=== PATIENT | female | born 1975 | race Caucasian/White ===

== ENCOUNTER 2016-06-06 06:13 | Emergency (ER) | payer OTHER, SELFPAY ==
[2016-06-06] MEDS ORDERED: KETOROLAC 30 MG/ML VIAL (J1885) As Ordered ONE (07:29)
--- NOTE | 2016-06-06 08:08 | EDDOCDS ---
Physician Documentation [facility] Name: Kaitlin Sanchez Age: 41 yrs Sex: Female : 1975 Arrival Date: 06/06/2016 Time: 06:13 Bed I3 / M3 Private MD: Disposition: 06/06/16 07:58 Discharged to Home/Self Care. Impression: Migraine with aura. - Condition is Stable. - Discharge Instructions: Migraine Headache. - Prescriptions for ZOFRAN ODT 4 mg - dissolve 1 tablet by ORAL route 4 times per day As needed do not chew, do not swallow whole; 10 tablet. ketorolac 10 mg Oral Tablet - take 1 tablet by ORAL route every 6 hours As needed MDD- 40mg. Up to 5 days total use.; 16 tablet. - Medication Reconciliation, Referral List Call for Appointment, Local Pharmacy Hours form. - Follow up: Emergency Department; When: As needed; Reason: Worsening of conditions. - Problem is an acute exacerbation. - Symptoms have improved. Historical: - Allergies: No known drug Allergies; - Home Meds: 1. none - PMHx: Migraine Headaches; - PSHx: ; Tubal ligation; - Social history: Smoking status: Patient uses tobacco products, heavy tobacco smoker. No barriers to communication noted, The patient speaks fluent Botswanan, Speaks appropriately for age. - Family history: Not pertinent. - : The pt / caregiver states he / she is not on anticoagulants. Home medication list is obtained from the patient. - Exposure Risk Screening:: None identified. 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 2 in. (157.48 cm); 08:01 BP 128 / 69; Pulse 59; Resp 18; Temp 96.8; Pulse Ox 98% ; Pain 4/10; jam1 06:22 Body Mass Index 27.07 (67.13 kg, 157.48 cm) cz MDM: 07:22 ketorolac 60 mg IM once ordered. ar2 07:56 Financial registration complete. lg Administered Medications: 07:31 Drug: ketorolac 60 mg [ketorolac 30 mg/mL (1 mL) injection solution (2 mL)] Route: IM; pml Site: right gluteus; Signatures: Timo Cleveland, RN RN Arnoldo Retana Reg Reg lg Robie, Kathleen,DINESH RN kr3 Helder Roberts, PADago PADago ar2 Francy Marie,DINESH RN pml MTDD
--- NOTE | 2016-06-06 08:08 | EDDOCDS ---
Nurse's Notes [facility] Name: Kaitlin Sanchez Age: 41 yrs Sex: Female : 1975 Arrival Date: 06/06/2016 Time: 06:13 Bed I3 / M3 Private MD: Diagnosis: Migraine with aura Presentation: 06/06 06:18 Presenting complaint: Patient states: she started with a migraine headache around 0000 cz last night pt has a history of same but has had them less frequently lately pt has photophobia nausea with vomiting. This patient has no additional risk factors. Adult Sepsis Screening: The patient does not have new or worsening altered mentation. Patient's respiratory rate is less than 22. Systolic blood pressure is greater than 100. Patient has a qSOFA score of 0- Negative Sepsis Screen. Suicide/Homicide risk assessment- the patient denies having any suicidal and/or homicidal ideations and does not present with any other emotional, behavioral or mental health complaints. 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 Transition of care: patient was not received from another setting of care. 06:18 Acuity: DENISE Level 3 cz 06:18 Method Of Arrival: Walkin/Carried/Asstd cz Triage Assessment: 06:22 Headache History: This patient has a history of headaches and the character of this cz headache is like all previous headaches. General: Appears uncomfortable. Pain: Pain currently is 6 out of 10 on a pain scale. Pain began six hours ago Also complains of nausea, photophobia. HIV screening NA for this visit Offered previously. 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 none - PMHx: Migraine Headaches; - PSHx: ; Tubal ligation; - Social history: Smoking status: Patient uses tobacco products, heavy tobacco smoker. No barriers to communication noted, The patient speaks fluent Lao, Speaks appropriately for age. - Family history: Not pertinent. - : The pt / caregiver states he / she is not on anticoagulants. Home medication list is obtained from the patient. - Exposure Risk Screening:: None identified. Screenin:31 Screening information is obtained from the patient. Fall risk: No risks identified. pml Assistance ADL's: requires no assistance with activities of daily living. Abuse/DV Screen: The patient / caregiver reports he/she is: not in a situation that causes fear, pain or injury. Nutritional screening: No deficits noted. Advance Directives: Currently, there is no health care proxy. home support is adequate. Assessment: 07:31 General: Appears uncomfortable, Behavior is appropriate for age, cooperative. Pain: pml Location: headache Pain currently is 6 out of 10 on a pain scale. Neurological: Level of Consciousness is awake, alert, Oriented to person, place, time, Reports photophobia. Cardiovascular: Capillary refill < 3 seconds. Respiratory: Airway is patent Respiratory effort is even, unlabored. Derm: Skin is pink, warm & dry. 08:07 Reassessment: Patient states feeling better. Pain: Location: headache Pain currently is kr3 4 out of 10 on a pain scale. Neurological: Level of Consciousness is awake, alert, Gait is steady, Speech is normal. Respiratory: Respiratory effort is even, unlabored. Derm: Skin is pink, warm & dry. Vital Signs: 06:22 BP 139 / 74; Pulse 78; Resp 16; Temp 99.5(TE); Pulse Ox 98% on R/A; Weight 67.13 kg; cz Height 5 ft. 2 in. (157.48 cm); 08:01 BP 128 / 69; Pulse 59; Resp 18; Temp 96.8; Pulse Ox 98% ; Pain 4/10; jam1 06:22 Body Mass Index 27.07 (67.13 kg, 157.48 cm) cz Vitals: 06:22 Log In Time: June 06, 2016 at 06:13. ED Course: 06:15 Patient visited by Danielle Angel. gjb 06:15 Patient moved to Waiting gjb 06:17 Patient moved to Triage 1 cz 06:22 Triage Initiated cz 06:25 Patient moved to Pre RCE cz 06:58 Patient moved to I3 / M3 jam1 07:05 Pt greeted and oriented to ED. Patient advised of names of staff involved in care, jam1 location of call long, wait times and NPO status. Patient has correct armband on for positive identification. Bed in low position. Call light in reach. Side rails up X 1. Adult w/ patient. Door closed. 07:14 Helder Roberts PA-C is PHCP. ar2 07:14 Wyatt Bates MD is Attending Physician. ar2 07:14 Patient visited by Helder Roberts PA-C. ar2 07:31 The patient / caregiver is instructed regarding the plan of care and ED course. pml 07:31 No IV's were initiated during this patient's visit. No procedures done that require pml assistance. 07:32 Patient visited by Francy Marie,RN. pml Administered Medications: 07:31 Drug: ketorolac 60 mg [ketorolac 30 mg/mL (1 mL) injection solution (2 mL)] Route: IM; pml Site: right gluteus; Order Results: There are currently no results for this order. Outcome: 07:58 Discharge ordered by Provider. ar2 08:06 Discharge Assessment: patient administered narcotics - no. The following High Risk kr3 Discharge criteria are identified: None. Discharged to home ambulatory. Condition: stable. Discharge instructions given to patient, Instructed on discharge instructions, follow up and referral plans. medication usage, Demonstrated understanding of instructions, medications, Pt was receptive of discharge instructions/ teaching. Prescriptions given X 2. No special radiology studies were completed. Property sent home with patient. 08:08 Patient left the ED. kr3 Signatures: Timo Cleveland, RN RN Nicole Gallego, BLENDING LINE ATTENDANT BLENDING LINE ATTENDANT jam1 Rosalie CruzRN DINESH kr3 Helder Roberts PA-C PA-C ar2 Francy Marie,RN RN Danielle Henderson MTDD
--- NOTE | 2016-06-08 09:08 | EDDOCDS ---
Nurse's Notes [facility] Name: Kaitlin Sanchez Age: 41 yrs Sex: Female : 1975 Arrival Date: 06/06/2016 Time: 06:13 Bed I3 / M3 Private MD: Diagnosis: Migraine with aura Presentation: 06/06 06:18 Presenting complaint: Patient states: she started with a migraine headache around 0000 cz last night pt has a history of same but has had them less frequently lately pt has photophobia nausea with vomiting. This patient has no additional risk factors. Adult Sepsis Screening: The patient does not have new or worsening altered mentation. Patient's respiratory rate is less than 22. Systolic blood pressure is greater than 100. Patient has a qSOFA score of 0- Negative Sepsis Screen. Suicide/Homicide risk assessment- the patient denies having any suicidal and/or homicidal ideations and does not present with any other emotional, behavioral or mental health complaints. 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 Transition of care: patient was not received from another setting of care. 06:18 Acuity: DENISE Level 3 cz 06:18 Method Of Arrival: Walkin/Carried/Asstd cz Triage Assessment: 06:22 Headache History: This patient has a history of headaches and the character of this cz headache is like all previous headaches. General: Appears uncomfortable. Pain: Pain currently is 6 out of 10 on a pain scale. Pain began six hours ago Also complains of nausea, photophobia. HIV screening NA for this visit Offered previously. 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 none - PMHx: Migraine Headaches; - PSHx: ; Tubal ligation; - Social history: Smoking status: Patient uses tobacco products, heavy tobacco smoker. No barriers to communication noted, The patient speaks fluent Macedonian, Speaks appropriately for age. - Family history: Not pertinent. - : The pt / caregiver states he / she is not on anticoagulants. Home medication list is obtained from the patient. - Exposure Risk Screening:: None identified. Screenin:31 Screening information is obtained from the patient. Fall risk: No risks identified. pml Assistance ADL's: requires no assistance with activities of daily living. Abuse/DV Screen: The patient / caregiver reports he/she is: not in a situation that causes fear, pain or injury. Nutritional screening: No deficits noted. Advance Directives: Currently, there is no health care proxy. home support is adequate. Assessment: 07:31 General: Appears uncomfortable, Behavior is appropriate for age, cooperative. Pain: pml Location: headache Pain currently is 6 out of 10 on a pain scale. Neurological: Level of Consciousness is awake, alert, Oriented to person, place, time, Reports photophobia. Cardiovascular: Capillary refill < 3 seconds. Respiratory: Airway is patent Respiratory effort is even, unlabored. Derm: Skin is pink, warm & dry. 08:07 Reassessment: Patient states feeling better. Pain: Location: headache Pain currently is kr3 4 out of 10 on a pain scale. Neurological: Level of Consciousness is awake, alert, Gait is steady, Speech is normal. Respiratory: Respiratory effort is even, unlabored. Derm: Skin is pink, warm & dry. Vital Signs: 06:22 BP 139 / 74; Pulse 78; Resp 16; Temp 99.5(TE); Pulse Ox 98% on R/A; Weight 67.13 kg; cz Height 5 ft. 2 in. (157.48 cm); 08:01 BP 128 / 69; Pulse 59; Resp 18; Temp 96.8; Pulse Ox 98% ; Pain 4/10; jam1 06:22 Body Mass Index 27.07 (67.13 kg, 157.48 cm) cz Vitals: 06:22 Log In Time: June 06, 2016 at 06:13. ED Course: 06:15 Patient visited by Danielle Angel. gjb 06:15 Patient moved to Waiting gjb 06:17 Patient moved to Triage 1 cz 06:22 Triage Initiated cz 06:25 Patient moved to Pre RCE cz 06:58 Patient moved to I3 / M3 jam1 07:05 Pt greeted and oriented to ED. Patient advised of names of staff involved in care, jam1 location of call long, wait times and NPO status. Patient has correct armband on for positive identification. Bed in low position. Call light in reach. Side rails up X 1. Adult w/ patient. Door closed. 07:14 Helder Roberts PA-C is PHCP. ar2 07:14 Wyatt Bates MD is Attending Physician. ar2 07:14 Patient visited by Helder Roberts PA-C. ar2 07:31 The patient / caregiver is instructed regarding the plan of care and ED course. pml 07:31 No IV's were initiated during this patient's visit. No procedures done that require pml assistance. 07:32 Patient visited by Francy Marie RN. pml 09:10 Patient name changed from Kaitlin\S\Nicole\S\Daniel\S\ to Kaitlin\S\Lalitha\S\Daniel. EDMS 09:11 [facility] Payment Agreement was scanned into [employer] and attached to record. lg 19:37 T-Sheet-- Draft Copy was scanned into [employer] and attached to record. klr Administered Medications: 07:31 Drug: ketorolac 60 mg [ketorolac 30 mg/mL (1 mL) injection solution (2 mL)] Route: IM; pml Site: right gluteus; Order Results: There are currently no results for this order. Outcome: 07:58 Discharge ordered by Provider. ar2 08:06 Discharge Assessment: patient administered narcotics - no. The following High Risk kr3 Discharge criteria are identified: None. Discharged to home ambulatory. Condition: stable. Discharge instructions given to patient, Instructed on discharge instructions, follow up and referral plans. medication usage, Demonstrated understanding of instructions, medications, Pt was receptive of discharge instructions/ teaching. Prescriptions given X 2. No special radiology studies were completed. Property sent home with patient. 08:08 Patient left the ED. kr3 Signatures: Dispatcher [facility] EDOK Timo Cleveland RN RN cz Murphy, Jane, BRICK TESTER BRICK TESTER jam1 Arnoldo Mercado, Gurvinder Hollins Rosalie Cruz RN RN kr3 Helder Roberts PA-C PA-C ar2 Francy Marie RN RN pml Beck, Gabriela gjb Redder, Kathie klr Chart Complete MTDD
--- NOTE | 2016-06-08 09:08 | EDDOCDS ---
Physician Documentation [facility] Name: Kaitlin Sanchez Age: 41 yrs Sex: Female : 1975 Arrival Date: 06/06/2016 Time: 06:13 Bed I3 / M3 Private MD: Disposition: 06/06/16 07:58 Discharged to Home/Self Care. Impression: Migraine with aura. - Condition is Stable. - Discharge Instructions: Migraine Headache. - Prescriptions for ZOFRAN ODT 4 mg - dissolve 1 tablet by ORAL route 4 times per day As needed do not chew, do not swallow whole; 10 tablet. ketorolac 10 mg Oral Tablet - take 1 tablet by ORAL route every 6 hours As needed MDD- 40mg. Up to 5 days total use.; 16 tablet. - Medication Reconciliation, Referral List Call for Appointment, Local Pharmacy Hours form. - Follow up: Emergency Department; When: As needed; Reason: Worsening of conditions. - Problem is an acute exacerbation. - Symptoms have improved. Historical: - Allergies: No known drug Allergies; - Home Meds: 1. none - PMHx: Migraine Headaches; - PSHx: ; Tubal ligation; - Social history: Smoking status: Patient uses tobacco products, heavy tobacco smoker. No barriers to communication noted, The patient speaks fluent [place] Citizen, Speaks appropriately for age. - Family history: Not pertinent. - : The pt / caregiver states he / she is not on anticoagulants. Home medication list is obtained from the patient. - Exposure Risk Screening:: None identified. 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 2 in. (157.48 cm); 08:01 BP 128 / 69; Pulse 59; Resp 18; Temp 96.8; Pulse Ox 98% ; Pain 4/10; jam1 06:22 Body Mass Index 27.07 (67.13 kg, 157.48 cm) cz MDM: 07:22 ketorolac 60 mg IM once ordered. ar2 07:56 Financial registration complete. lg 09:11 [facility] Payment Agreement was scanned into [employer] and attached to record. lg 19:37 T-Sheet-- Draft Copy was scanned into [employer] and attached to record. klr Administered Medications: 07:31 Drug: ketorolac 60 mg [ketorolac 30 mg/mL (1 mL) injection solution (2 mL)] Route: IM; pml Site: right gluteus; Signatures: Timo Cleveland RN RN cz Arnoldo Mercado, Gurvinder Hollins lg Rosalie Cruz RN RN kr3 Helder Roberts PA-C PADago ar2 Francy Marie RN RN pml Redder, Kathie klr The chart was reviewed and I authenticate all verbal orders and agree with the evaluation and treatment provided.Attachments: 09:11 [facility] Payment Agreement lg 19:37 T-Sheet-- Draft Copy klr Chart Complete MTDD
--- NOTE | 2016-06-08 09:08 | EDDOCDS ---
[facility] Name: Kaitlin Sanchez Age: 41 yrs Sex: Female : 1975 Arrival Date: 06/06/2016 Time: 06:13 Bed I3 / M3 Private MD: Disposition: 06/06/16 07:58 Discharged to Home/Self Care. Impression: Migraine with aura. - Condition is Stable. - Discharge Instructions: Migraine Headache. - Prescriptions for ZOFRAN ODT 4 mg - dissolve 1 tablet by ORAL route 4 times per day As needed do not chew, do not swallow whole; 10 tablet. ketorolac 10 mg Oral Tablet - take 1 tablet by ORAL route every 6 hours As needed MDD- 40mg. Up to 5 days total use.; 16 tablet. - Medication Reconciliation, Referral List Call for Appointment, Local Pharmacy Hours form. - Follow up: Emergency Department; When: As needed; Reason: Worsening of conditions. - Problem is an acute exacerbation. - Symptoms have improved. Historical: - Allergies: No known drug Allergies; - Home Meds: 1. none - PMHx: Migraine Headaches; - PSHx: ; Tubal ligation; - Social history: Smoking status: Patient uses tobacco products, heavy tobacco smoker. No barriers to communication noted, The patient speaks fluent Fijian, Speaks appropriately for age. - Family history: Not pertinent. - : The pt / caregiver states he / she is not on anticoagulants. Home medication list is obtained from the patient. - Exposure Risk Screening:: None identified. 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 2 in. (157.48 cm); 08:01 BP 128 / 69; Pulse 59; Resp 18; Temp 96.8; Pulse Ox 98% ; Pain 4/10; jam1 06:22 Body Mass Index 27.07 (67.13 kg, 157.48 cm) cz MDM: 07:22 ketorolac 60 mg IM once ordered. ar2 07:56 Financial registration complete. lg 09:11 [facility] Payment Agreement was scanned into [employer] and attached to record. lg 19:37 T-Sheet-- Draft Copy was scanned into [employer] and attached to record. klr Administered Medications: 07:31 Drug: ketorolac 60 mg [ketorolac 30 mg/mL (1 mL) injection solution (2 mL)] Route: IM; pml Site: right gluteus; Signatures: Timo Cleveland RN RN cz Arnoldo Mercado, Gurvinder Hollins lg Rosalie Cruz RN RN kr3 Helder Roberts PA-C PADago ar2 Francy Marie RN RN pml Redder, Kathie klr The chart was reviewed and I authenticate all verbal orders and agree with the evaluation and treatment provided.Attachments: 09:11 [facility] Payment Agreement lg 19:37 T-Sheet-- Draft Copy klr Chart Complete MTDD
== END 2016-06-06 08:08 | disposition home or self-care (01) ==
LOC: M ED 06:13
DX: G43.109 Migraine with aura, not intractable, without status migrainosus (principal); F17.210 Nicotine dependence, cigarettes, uncomplicated
CPT/HCPCS: 96372; 99283; J1885

== ENCOUNTER 2017-11-05 18:45 | Emergency (ER) | payer OTHER ==
[2017-11-05 20:05] LABS: HEMATOCRIT 35.8 % (36.0-47.0); HEMOGLOBIN 12.3 g/dl (12.0-15.5); MEAN CORPUSCULAR HEMOGLOBIN 26.6 pg (27.0-33.0); MEAN CORPUSCULAR HGB CONC 34.4 g/dl (32.0-36.5); MEAN CORPUSCULAR VOLUME 77.5 fl (80.0-96.0); PLATELET COUNT, AUTOMATED 179 10^3/uL (150-450); RED BLOOD COUNT 4.62 10^6/uL (4.00-5.40); RED CELL DISTRIBUTION WIDTH 14.2 % (11.5-14.5); WHITE BLOOD COUNT 5.9 10^3/uL (4.0-10.0)
[2017-11-05 20:15] LABS: ADD MANUAL DIFFER YES; DIFF SLIDE NUMBER 156; POSITIVE MORPH POS FLAG
[2017-11-05 20:30] LABS: CONTROL LINE MONO INT CTR LINE PRESENT; MONO SCRN NEGATIVE (NEGATIVE)
[2017-11-05 20:35] LABS: ATYPICAL LYMPH 1 % (0-5); BANDS 2 % (< 11); BASOPHILS 2 % (0-4); EOSINOPHILS 1 % (0-5); LYMPHOCYTES 21 % (16-52); MONOCYTES 1 % (0-8); NEUTROPHILS 72 % (35-75)
[2017-11-05 20:37] LABS: PLATELET ESTIMATE NORMAL (NORMAL)
[2017-11-05 20:38] LABS: ALBUMIN 3.3 GM/DL (3.2-5.2); ALBUMIN/GLOBULIN RATIO 0.97 (1.00-1.93); ALKALINE PHOSPHATASE 110 U/L (45-117); ALT/SGPT 105 U/L (12-78); ANION GAP 6 MEQ/L (8-16); AST/SGOT 56 U/L (7-37); BILIRUBIN,DIRECT 0.1 MG/DL (0.0-0.2); BILIRUBIN,TOTAL 0.5 MG/DL (0.2-1.0); BLOOD UREA NITROGEN 10 MG/DL (7-18); C REACTIVE PROTEIN QUANTITATIV 3.16 MG/DL (0.00-0.30); CALCIUM LEVEL 8.6 MG/DL (8.5-10.1); CARBON DIOXIDE LEVEL 25 MEQ/L (21-32); CHLORIDE LEVEL 105 MEQ/L (98-107); CREATININE FOR GFR 0.68 MG/DL (0.55-1.30); ERYTHROCYTE SEDIMENTATION RATE 31 mm/hr (0-20); GLOMERULAR FILTRATION RATE > 60.0 (>58); GLUCOSE, FASTING 105 MG/DL (70-100); POTASSIUM SERUM 3.8 MEQ/L (3.5-5.1); SODIUM LEVEL 136 MEQ/L (136-145); TOTAL PROTEIN 6.7 GM/DL (6.4-8.2)
[2017-11-05] MEDS: LevoFLOXacin 750 MG TABLET PO (21:00)
[2017-11-09 00:06] LABS: Lyme Disease IgG/IgM Antibodie <0.91 ISR (0.00-0.90); Lyme Disease IgM Ab Quantitati <0.80 index (0.00-0.79)
== END 2017-11-05 22:36 | disposition home or self-care (01) ==
LOC: M ED 18:45
DX: R53.83 Other fatigue (principal); R21 Rash and other nonspecific skin eruption; R50.9 Fever, unspecified; Z72.0 Tobacco use
CPT/HCPCS: 71046

== ENCOUNTER 2018-02-04 20:40 | Emergency (ER) | payer OTHER ==
[2018-02-04] MEDS: NAPROXEN 250 MG TAB PO (22:17)
== END 2018-02-04 22:22 | disposition home or self-care (01) ==
LOC: M ED 20:40
DX: M25.512 Pain in left shoulder (principal); F17.210 Nicotine dependence, cigarettes, uncomplicated
CPT/HCPCS: 73030

== ENCOUNTER 2018-12-07 12:31 | Emergency (ER) | payer OTHER ==
[~2018-12-07] VITALS: Ht 157.5 cm; Wt 77.7 kg
[~2018-12-07 12:31] MED LIST: IBUP-1114 PO; LEVA750T7 PO; NAPR-837 PO
[2018-12-07 13:56] LABS: BASO % 0.4 % (0.0-1.0); EOS # 0.1 10^3/uL (0.0-0.50); EOS % 1.4 % (0.0-3.0); HEMATOCRIT 39.4 % (36.0-47.0); HEMOGLOBIN 13.9 g/dl (12.0-15.5); LYMPH # 2.6 10^3/uL (1.5-4.5); LYMPH % 27.2 % (24.0-44.0); MEAN CORPUSCULAR HEMOGLOBIN 29.4 pg (27.0-33.0); MEAN CORPUSCULAR HGB CONC 35.3 g/dl (32.0-36.5); MEAN CORPUSCULAR VOLUME 83.3 fl (80.0-96.0); MONO # 0.5 10^3/uL (0.0-0.8); MONO % 5.1 % (0.0-5.0); NEUTROPHILS # 6.3 10^3/uL (1.8-7.7); NEUTROPHILS % 65.5 % (36.0-66.0); PLATELET COUNT, AUTOMATED 204 10^3/uL (150-450); RED BLOOD COUNT 4.73 10^6/uL (4.00-5.40); WHITE BLOOD COUNT 9.6 10^3/uL (4.0-10.0)
[2018-12-07 15:14] LABS: ALBUMIN 3.4 GM/DL (3.2-5.2); ALT/SGPT 55 U/L (12-78); BILIRUBIN,DIRECT < 0.1 MG/DL (0.0-0.2); BILIRUBIN,TOTAL 0.7 MG/DL (0.2-1.0); BLOOD UREA NITROGEN 10 MG/DL (7-18); CALCIUM LEVEL 8.1 MG/DL (8.5-10.1); CARBON DIOXIDE LEVEL 25 MEQ/L (21-32); CHLORIDE LEVEL 105 MEQ/L (98-107); CREATININE FOR GFR 0.55 MG/DL (0.55-1.30); GLOMERULAR FILTRATION RATE > 60.0 (>58); GLUCOSE, FASTING 152 MG/DL (70-100); LIPASE 407 U/L (73-393); POTASSIUM SERUM 3.9 MEQ/L (3.5-5.1); SODIUM LEVEL 136 MEQ/L (136-145); TOTAL PROTEIN 6.7 GM/DL (6.4-8.2)
[2018-12-07] MEDS ORDERED: NS 500 ML IV ONE (15:30)
--- NOTE | 2018-12-07 16:06 | REP ---
CT of the abdomen and pelvis without IV or bowel contrast for left flank pain and history of renal calculi: There are no comparison abdomen pelvis CT studies. There are no renal calculi. There are no ureteral calculi. There are no bladder calculi. There is no hydronephrosis. There is no perinephric stranding. The visualized lung daily are unremarkable. The unenhanced hepatic parenchyma, gallbladder, pancreas, spleen, adrenals, abdominal aorta, bowel and mesentery are unremarkable. Pelvis: The appendix and terminal ileum are unremarkable. The bladder is unremarkable. There are phleboliths and ligation clips. There is no adenopathy or ascites. The pelvic bowel loops are unremarkable. There is no diverticulosis or diverticulitis. The uterus and right adnexa are unremarkable. There is a 16 mm left adnexal follicle. Impression: There is no hydronephrosis. There are no renal, ureteral or bladder calculi. There is a 16 mm left adnexal follicle. There are phleboliths and ligation clips in the pelvis. Otherwise, negative CT of the abdomen and pelvis. Electronically Signed by Bhupendra Jaeger MD 12/07/2018 03:58 P
[2018-12-07 16:28] VITALS: BP 118/67
[2018-12-07] MEDS ORDERED: KETOROLAC 30 MG/ML VIAL (J1885) IV ONE (16:30)
== END 2018-12-07 18:25 | disposition home or self-care (01) ==
LOC: M ED 12:31
DX: N83.02 Follicular cyst of left ovary (principal); R74.8 Abnormal levels of other serum enzymes; J45.909 Unspecified asthma, uncomplicated; G43.909 Migraine, unspecified, not intractable, without status migrainosus; Z87.442 Personal history of urinary calculi; F17.210 Nicotine dependence, cigarettes, uncomplicated
CPT/HCPCS: 74176; 80048; 80076; 81001; 83690; 85025; 96361; 96374; 99284; J1885

== ENCOUNTER 2019-01-23 04:37 | Emergency (ER) | payer OTHER ==
[~2019-01-23] VITALS: Ht 157.5 cm; Wt 76.4 kg
[2019-01-23 04:37] VITALS: BP 156/70
[2019-01-23] MEDS ORDERED: ONDANSETRON 4 MG TAB (S0181) PO ONE (05:45)
[2019-01-23] MEDS ORDERED: SUMAtriptan SUCCINATE 6 MG/0.5 ML VIAL SC ONE (05:45)
== END 2019-01-23 06:20 | disposition home or self-care (01) ==
LOC: M ED 04:37
DX: G43.009 Migraine without aura, not intractable, without status migrainosus (principal)

== ENCOUNTER 2019-06-23 04:31 | Emergency (ER) | payer OTHER ==
[~2019-06-23] VITALS: Ht 157.5 cm; Wt 76.6 kg
[2019-06-23 05:34] LABS: PLATELET COUNT, AUTOMATED 267 10^3/uL (150-450); RED BLOOD COUNT 4.57 10^6/uL (4.00-5.40)
[2019-06-23] MEDS ORDERED: KETOROLAC 30 MG/ML VIAL (J1885) IV ONE (06:15)
[2019-06-23] MEDS ORDERED: ONDANSETRON 4MG/2ML VIAL (J2405) IV ONE (06:15)
[2019-06-23] MEDS ORDERED: NS 1,000 ML IV ONE (06:15)
[2019-06-23 06:41] LABS: HEMATOCRIT 34.1 % (36.0-47.0); HEMOGLOBIN 11.1 g/dl (12.0-15.5); MEAN CORPUSCULAR HEMOGLOBIN 26.9 pg (27.0-33.0); MEAN CORPUSCULAR HGB CONC 32.6 g/dl (32.0-36.5); MEAN CORPUSCULAR VOLUME 82.8 fl (80.0-96.0)
[2019-06-23 06:42] LABS: WHITE BLOOD COUNT 10.7 10^3/uL (4.0-10.0)
[2019-06-23 06:43] LABS: ALBUMIN 2.9 GM/DL (3.2-5.2); ALT/SGPT 42 U/L (12-78); BILIRUBIN,DIRECT < 0.1 MG/DL (0.0-0.2); BILIRUBIN,TOTAL 0.5 MG/DL (0.2-1.0); LIPASE 373 U/L (73-393)
[2019-06-23] MEDS ORDERED: PANTOPRAZOLE 40MG INJ (PROTONIX) (C9113) IV ONE (07:00)
[2019-06-23 07:01] LABS: ATYPICAL LYMPH 6 % (0-5); EOSINOPHILS 3 % (0-3); LYMPHOCYTES 19 % (16-44); MONOCYTES 4 % (0-5); NEUTROPHILS 68 % (28-66)
[2019-06-23 07:02] LABS: ANISOCYTOSIS 1+; PLATELET ESTIMATE NORMAL (NORMAL)
--- NOTE | 2019-06-23 07:23 | REPVR ---
PROCEDURE INFORMATION: Exam: US Abdomen Limited, Right Upper Quadrant Exam date and time: 06/23/2019 6:27 AM Age: 44 years old Clinical indication: Abdominal pain; Epigastric; Additional info: Ruq pain extending into luq TECHNIQUE: Imaging protocol: Real-time ultrasound of the abdomen with image documentation. Examination was focused on the right upper quadrant. COMPARISON: CT ABD PELVIS W/O CONTRAST 12/07/2018 3:24 PM FINDINGS: Liver: The liver demonstrates no focal defects. Gallbladder: The gallbladder demonstrates no wall thickening measuring 2 mm and no gallstones. There is a negative sono Galvez's sign. Common bile duct: The CBD measures 3 mm. Pancreas: The pancreas is normal. Right kidney: The right kidney is normal with no hydronephrosis and measures 12.0 cm. IMPRESSION: Negative right upper quadrant sonogram. Electronically signed by: Octavio Yu On 06/23/2019 07:23:20 AM
--- NOTE | 2019-06-23 07:48 | REPVR ---
PROCEDURE INFORMATION: Exam: CT Abdomen And Pelvis With Contrast Exam date and time: 06/23/2019 7:34 AM Age: 44 years old Clinical indication: Abdominal pain; Epigastric; Additional info: Epigastric pain, into luq TECHNIQUE: Imaging protocol: Computed tomography of the abdomen and pelvis with intravenous contrast. Radiation optimization: All CT scans at this facility use at least one of these dose optimization techniques: automated exposure control; mA and/or kV adjustment per patient size (includes targeted exams where dose is matched to clinical indication); or iterative reconstruction. Contrast material: ISOVUE 370; Contrast volume: 100 ml; Contrast route: IV; COMPARISON: CT ABD PELVIS W/O CONTRAST 12/07/2018 3:24 PM FINDINGS: Lungs: Minimal right middle lobe linear atelectasis or scar. Liver: The liver at mid clavicular line measures 16.2 cm. The liver attenuation is 82 Hounsfield units and the spleen is 109 Hounsfield units. Gallbladder and bile ducts: Normal. No calcified stones. No ductal dilation. Pancreas: Slight peripancreatic induration about the head and neck which extends along the gastric antrum suggesting minimal pancreatitis. There is decreased peripancreatic edema about the tail since the prior study. Spleen: Normal. No splenomegaly. Adrenals: Normal. No mass. Kidneys and ureters: Punctate nonobstructing left renal calculus in the lower pole. Stomach and bowel: There is a diverticulum projecting from the proximal duodenal sweep. Appendix: A normal appendix is seen. Intraperitoneal space: Surgical clip in the cul-de-sac and in the right adnexa. Trace fluid in the cul-de-sac which is physiologic. Vasculature: Unremarkable. No abdominal aortic aneurysm. Lymph nodes: Unremarkable. No enlarged lymph nodes. Bladder: Unremarkable as visualized. Reproductive: Retroverted uterus. Left ovarian cyst measuring 5.8 x 3.3 x 2.3 cm. Bones/joints: Unremarkable. No acute fracture. Soft tissues: Unremarkable. IMPRESSION: 1. Minimal peripancreatic induration about the head and neck consistent with minimal pancreatitis which is slightly increased in this portion of the gland since 12/07/2018. There is decreased edema about the pancreatic tail since the prior study. 2. Borderline hepatomegaly. 3. Punctate nonobstructing left renal calculus in the lower pole which is similar. 4. Left ovarian cyst measuring 5.8 x 3.3 x 2.3 cm which is increased since the prior study. Electronically signed by: Octavio Yu On 06/23/2019 07:47:52 AM
[2019-06-23] MEDS ORDERED: OMEP40CA97 PO (08:08)
[2019-06-23 08:26] VITALS: BP 113/59
--- NOTE | 2019-06-23 09:39 | ED PDOC ---
Post-Departure Follow-Up [facility] faxed formal report of ct abd/p for fu Trina Rowell MD Jun 23, 2019 09:39
[2019-06-23] MEDS ORDERED: OMEP-221 PO (21:54)
== END 2019-06-23 08:38 | disposition home or self-care (01) ==
LOC: M ED 04:31
DX: K29.70 Gastritis, unspecified, without bleeding (principal); K21.9 Gastro-esophageal reflux disease without esophagitis; K85.90 Acute pancreatitis without necrosis or infection, unspecified; N20.0 Calculus of kidney; N83.292 Other ovarian cyst, left side; F17.200 Nicotine dependence, unspecified, uncomplicated; Z87.442 Personal history of urinary calculi
CPT/HCPCS: 74177; 76705; 80047; 80076; 83690; 84702; 85025; 96361; 96374; 96375; 99284; C9113; J1885; J2405

== ENCOUNTER 2019-06-23 17:57 | Inpatient (IN) | payer OTHER ==
[~2019-06-23] VITALS: Ht 157.5 cm; Wt 77.4 kg
[~2019-06-23 17:57] MED LIST changes: +OMEP40CA97 PO
[2019-06-23] MEDS ORDERED: KETOROLAC 30 MG/ML VIAL (J1885) IV ONE (19:00)
[2019-06-23 19:27] LABS: BASO % 0.2 % (0.0-1.0); EOS # 0.1 10^3/uL (0.0-0.5); EOS % 0.9 % (0.0-3.0); HEMATOCRIT 37.5 % (36.0-47.0); HEMOGLOBIN 12.6 g/dl (12.0-15.5); LYMPH # 1.7 10^3/uL (1.5-5.0); LYMPH % 12.4 % (24.0-44.0); MEAN CORPUSCULAR HEMOGLOBIN 27.3 pg (27.0-33.0); MEAN CORPUSCULAR HGB CONC 33.6 g/dl (32.0-36.5); MEAN CORPUSCULAR VOLUME 81.3 fl (80.0-96.0); MONO # 0.6 10^3/uL (0.0-0.8); MONO % 4.5 % (0.0-5.0); NEUTROPHILS # 11.4 10^3/uL (1.5-8.5); NEUTROPHILS % 81.6 % (36.0-66.0); PLATELET COUNT, AUTOMATED 219 10^3/uL (150-450); RED BLOOD COUNT 4.61 10^6/uL (4.00-5.40)
[2019-06-23 20:45] LABS: ALBUMIN 3.6 GM/DL (3.2-5.2); ALT/SGPT 36 U/L (12-78); AMYLASE 175 U/L (25-115); BILIRUBIN,DIRECT < 0.1 MG/DL (0.0-0.2); BILIRUBIN,TOTAL 0.9 MG/DL (0.2-1.0); LIPASE 1318 U/L (73-393)
[2019-06-23] MEDS ORDERED: THIAMINE 100 MG TAB PO SCH (21:00)
[2019-06-23] MEDS ORDERED: ENOXAPARIN 40 MG/0.4 ML SYRINGE (J1650) SC SCH (21:00)
[2019-06-23] MEDS: NS 1,000 ML IV SCH (21:16)
--- NOTE | 2019-06-23 21:23 | HPEPDOC ---
[facility] Medical History & Physical Date of Admission Jun 23, 2019 Date of Service: Jun 23, 2019 Attending Physician: ALFONSO FENG MD History and Physical TIME OF SERVICE: 9:45 PM CHIEF COMPLAINT: Pain HISTORY OF PRESENT ILLNESS: This is a 44-year-old female presents with complaints of "more than 10 out of 10 "in severity "unbearable" pain underneath her ribs that radiates to the left side of her back back, associated with nausea and nonbloody emesis. She was here earlier on today with similar complaints, was noted to have a lipase of 373, and a liver ultrasound that was unremarkable and CT scan with findings consistent with pancreatitis. She was diagnosed with mild pancreatitis / gastritis, sent home with omeprazole and recommendations to resume a clear liquid diet, but she returned because the pain was too severe. REVIEW OF SYSTEMS: 12 point review of systems negative except as listed in HPI PAST MEDICAL/ SURGICAL HISTORY: Pancreatitis Tubal ligation. Status post SOCIAL HISTORY: She smokes. She drinks one or 2 beers on the weekends. She denies recreational of drug use FAMILY HISTORY: CAD Diabetes CKD Dyslipidemia ALLERGIES: Please see below. HOME MEDICATIONS: Please see below. PHYSICAL EXAMINATION: VITAL SIGNS: Please see below. GEN: well-nourished / well developed/ NAD INTEGUMENT: not flushed/ not jaundice / negative gaviota sign neg wood's sign /she has an old well-healed scar from at the lower abdomen HEENT: NCAT / lips acyanotic /mucus membranes moist and pink / sclera anicteric CVS: RRR/NMRG/ radial pedis pulses intact / no lower extremity edema LUNGS: clear to auscultation bilaterally on room air ABDOMEN: Contour (flat) / there are no masses or lesions / bowel sounds are hypoactive/ the abdomen is very tender with light palpation MSK/EXTREMITIES: range of motion intact in all 4 extremities NEURO: CN 2-12 are grossly intact / speech is not dysarthric PSYCH: alert and oriented to person place and time/ able to understand and follow all commands LABORATORY DATA: See below. IMAGING: Ultrasound " IMPRESSION: Negative right upper quadrant sonogram." CT abdomen and pelvis " IMPRESSION: 1. Minimal peripancreatic induration about the head and neck consistent with minimal pancreatitis which is slightly increased in this portion of the gland since 12/07/2018. There is decreased edema about the pancreatic tail since the prior study. 2. Borderline hepatomegaly. 3. Punctate nonobstructing left renal calculus in the lower pole which is similar. 4. Left ovarian cyst measuring 5.8 x 3.3 x 2.3 cm which is increased since the prior study. " MICROBIOLOGY: Please see below. ASSESSMENT: Ms. Sanchez is a 44 old female with a prior history of pancreatitis who is admitted for management of acute pancreatitis. PLAN: 1. Pancreatitis Diagnosis made on the basis of abdominal pain + elevated lipase + CT findings c/w pancreatitis Her LFTs were normal, and her CT and ultrasound did not show stones, therefore, possible remaining causes include alcohol, hypercalcemia, dyslipidemia, autoimmune cause or less likely ibuprofen-induced pancreatitis. Modified Rizwan Score to define organ failure in pts w acute pancreatitis = 0 Plan: NPO/ IVF / f/u serum ETO, calcium, and lipid panel / IV morphine PRN for pain / hold ibuprofen 2. Ovarian cyst - Plan: Follow up with [facility] on an outpatient basis 3. Nonobstructing left renal calculi -Plan: No acute intervention 4. Obesity w BMI of 30.8, complicates care. - Plan: f/u A1C, and w PCP for biller consult / recommend cardiovascular exercise for 40 min 4-5 days a week DVT PROPHYLAXIS: Lovenox DISPOSITION: Home after more than 2 midnight's stay LATE ENTRY #Hypertriglyceridemia -suspect that this might have caused her pancreatitis Plan: will f/u lactic acid, transfer to ICU for insulin drip w dextrose f/u acuchecks Q1H f/u TG Q12H, when her TG is below 500 we can dc insulin and start lipid therapy (ezitamibe), biller consult to discuss low cholesterol diet, GI consult Vital Signs Vital Signs Date Time Temp Pulse Resp B/P (MAP) Pulse Ox O2 Delivery O2 Flow Rate FiO2 06/23/19 19:26 06/23/19 17:57 98.1 88 18 97 Room Air Laboratory Data Labs 24H Laboratory Tests 2 06/23/19 19:00: POC Glucose (Misc Panel) 98, POC Sodium (Misc Panel) 136, POC Potassium (Misc Panel) 3.8, POC Chloride (Misc Panel) 105, POC Total CO2 (Misc Panel) 26.0, POC Blood Urea Nitrogen (Misc Panel 9, POC Ionized Calcium (Misc Panel) 4.6, POC Creatinine (Misc Panel) 0.4L, POC Hematocrit (Misc Panel) 38.0 06/23/19 19:15: Immature Granulocyte % (Auto) 0.4, Neutrophils (%) (Auto) 81.6H, Lymphocytes (%) (Auto) 12.4L, Monocytes (%) (Auto) 4.5, Eosinophils (%) (Auto) 0.9, Basophils (%) (Auto) 0.2, Neutrophils # (Auto) 11.4H, Lymphocytes # (Auto) 1.7, Monocytes # (Auto) 0.6, Eosinophils # (Auto) 0.1, Basophils # (Auto) 0.0, Nucleated Red Blood Cells % (auto) 0.0, POC Lactate (Misc Panel) 0.92, Total Bilirubin 0.9#, Direct Bilirubin < 0.1, Aspartate Amino Transf (AST/SGOT) 20, Alanine Aminotransferase (ALT/SGPT) 36, Alkaline Phosphatase 58, Total Protein 7.0, Albumin 3.6#, Albumin/Globulin Ratio 1.06, Amylase Level 175H, Lipase 1318H CBC/BMP Laboratory Tests 06/23/19 19:15 Home Medications Scheduled Omeprazole (Omeprazole) 40 Mg Capsule.dr, 40 MG PO DAILY NEW MEDICATION, HAS NOT STARTED Scheduled PRN Ibuprofen (Ibuprofen) 400 Mg Tab, 800 MG PO Q6H PRN for PAIN Allergies Coded Allergies: No Known Allergies (Unverified , 12/07/18) A-FIB/CHADSVASC A-FIB History Current/History of A-Fib/PAF?: No Current PO Anticoag Therapy: No ALFONSO FENG MD Jun 23, 2019 21:23
[2019-06-23] MEDS ORDERED: KETOROLAC 30 MG/ML VIAL (J1885) IV PRN (21:30)
[2019-06-23] MEDS ORDERED: ONDANSETRON 4MG/2ML VIAL (J2405) IV PRN (21:30)
[2019-06-23] MEDS ORDERED: LORazepam 2 MG TAB PO PRN (21:30)
[2019-06-23] MEDS ORDERED: OMEP-221 PO (21:54)
[2019-06-23 22:56] LABS: CHOLESTEROL LEVEL 324 MG/DL (<200); HDL CHOLESTEROL 40 MG/DL (>40); NON-HDL-C 284 MG/DL; TRIGLYCERIDES LEVEL 1159 MG/DL (<150)
[2019-06-23] MEDS: MORPHINE 2 MG/ML 1ML VIAL (J2270) IV PRN (22:58)
[2019-06-23 23:10] VITALS: BP 136/63
[2019-06-23 23:13] VITALS: BP 136/63
[2019-06-24] MEDS: NICOTINE 14 MG/24 HR TRANSDERMAL TD SCH ×2 (01:30→09:00)
[2019-06-24] MEDS: NS 1,000 ML IV SCH ×5 (03:33→21:14)
[2019-06-24] MEDS ORDERED: D5W/0.9% SODIUM CHLORIDE 1,000 ML IV SCH (04:30)
[2019-06-24 04:53] LABS: HEMATOCRIT 33.4 % (36.0-47.0); MEAN CORPUSCULAR HEMOGLOBIN 26.9 pg (27.0-33.0); MEAN CORPUSCULAR HGB CONC 32.9 g/dl (32.0-36.5); MEAN CORPUSCULAR VOLUME 81.7 fl (80.0-96.0); PLATELET COUNT, AUTOMATED 184 10^3/uL (150-450); RED BLOOD COUNT 4.09 10^6/uL (4.00-5.40); WHITE BLOOD COUNT 10.5 10^3/uL (4.0-10.0)
[2019-06-24 05:25] LABS: CHOLESTEROL LEVEL 247 MG/DL (<200); CHOLESTEROL RISK RATIO 7.057 (<5); HDL CHOLESTEROL 35 MG/DL (>40); NON-HDL-C 212 MG/DL; TRIGLYCERIDES LEVEL 844 MG/DL (<150)
[2019-06-24 05:42] LABS: ALT/SGPT 21 U/L (12-78); BILIRUBIN,TOTAL 1.8 MG/DL (0.2-1.0); BLOOD UREA NITROGEN 7 MG/DL (7-18); CALCIUM LEVEL 8.1 MG/DL (8.5-10.1); CARBON DIOXIDE LEVEL 23 MEQ/L (21-32); CHLORIDE LEVEL 109 MEQ/L (98-107); CREATININE FOR GFR 0.48 MG/DL (0.55-1.30); GLOMERULAR FILTRATION RATE > 60.0 (>58); GLUCOSE, FASTING 98 MG/DL (70-100); MAGNESIUM LEVEL 1.5 MG/DL (1.8-2.4); POTASSIUM SERUM 3.9 MEQ/L (3.5-5.1); SODIUM LEVEL 138 MEQ/L (136-145); TOTAL PROTEIN 6.7 GM/DL (6.4-8.2)
[2019-06-24] MEDS ORDERED: INSULIN IV RATE CHANGE DOCUMENTATION ML/HR XX SCH (05:45)
[2019-06-24] MEDS ORDERED: INSULIN HUMAN REGULAR 100 UNITS in NS 99 ML IV SCH (05:45)
[2019-06-24 05:55] VITALS: BP 130/70
[2019-06-24] MEDS ORDERED: DEXTROSE 50% 50 ML SYRINGE IV PRN (06:00)
[2019-06-24] MEDS ORDERED: GLUCOSE 4 GM CHEW TABLET PO PRN (06:00)
[2019-06-24] MEDS ORDERED: GLUCAGON FOR INJ 1 MG VIAL (J1610) SC PRN (06:00)
[2019-06-24] MEDS ORDERED: MAGNESIUM OXIDE 400 MG TAB (MAG-OX) PO ONE (07:45)
[2019-06-24 08:00] VITALS: BP 117/67
[2019-06-24] MEDS: MULTIVITAMINS/MINERALS THERAP 1 TAB PO SCH (08:09)
[2019-06-24] MEDS: MORPHINE 2 MG/ML 1ML VIAL (J2270) IV PRN ×2 (08:10→13:40)
[2019-06-24] MEDS ORDERED: FOLIC ACID 1 MG TAB PO SCH (09:00)
--- NOTE | 2019-06-24 11:15 | IPNPDOC ---
Text Note Date of Service The patient was seen on 06/24/19. NOTE Subjective: -Was admitted overnight with abdominal pain and found to have pancreatitis and hypertriglyceridemia and placed in ICU with c/f severe hypertriglyceridemia with plan for d5NS/insulin gtt but triglycerides improved with just fluids so insulin/dextrose was never initiated and GI consult rescinded. -This AM feels better with pain medication on board -Resuming fluids at 250cc/hr while NPO Objective: VITAL SIGNS: Please see below. Hemodynamically stable GEN: well-nourished / well developed/ NAD INTEGUMENT: not flushed/ not jaundice / negative has old well-healed scar HEENT: NCAT / MMM / anicteric CVS: RRR/NMRG/ radial pedis pulses intact / no lower extremity edema LUNGS: clear to auscultation bilaterally on room air ABDOMEN: Hypoactive bowel sounds/ mild TTP diffusely/ no noted hepatosplenomegaly MSK/EXTREMITIES: range of motion intact in all 4 extremities NEURO: CN 2-12 are grossly intact / speech is not dysarthric PSYCH: alert and oriented to person place and time/ able to understand and follow all commands LABORATORY DATA: See below. Triglycerides; 1159--> 844 IMAGING: Ultrasound " IMPRESSION: Negative right upper quadrant sonogram." CT abdomen and pelvis " IMPRESSION: 1. Minimal peripancreatic induration about the head and neck consistent with minimal pancreatitis which is slightly increased in this portion of the gland since 12/07/2018. There is decreased edema about the pancreatic tail since the prior study. 2. Borderline hepatomegaly. 3. Punctate nonobstructing left renal calculus in the lower pole which is similar. 4. Left ovarian cyst measuring 5.8 x 3.3 x 2.3 cm which is increased since the prior study. " MICROBIOLOGY: Please see below. ASSESSMENT: Ms. Sanchez is a 44 old female with a prior history of pancreatitis, untreated HLD with significant progressive hypertriglyceridemia who is admitted for manag ement of acute pancreatitis likely 2/2 hypertriglyceridemia. PLAN: 1. Pancreatitis 2/2 hypertriglyceridemia Diagnosis made on the basis of abdominal pain + elevated lipase + CT findings c/w pancreatitis + elevated triglycerides -Her LFTs were normal -continue NPO/ IVF @ 250cc/hr / IV morphine PRN for pain / hold ibuprofen/ will start gemfibrozil and lipitor 20 tomorrow -check noon triglycerides and if continuing downtrend, will transfer to floor from ICU 2. Ovarian cyst Plan: Follow up with [facility] on an outpatient basis 3. Nonobstructing left renal calculi -Plan: No acute intervention DVT PROPHYLAXIS: Lovenox DISPOSITION: ICU, with likely transfer to floor later this afternoon VS,Fishbone, I+O VS, Fishbone, I+O Laboratory Tests 06/23/19 19:15 06/24/19 04:38 Vital Signs Date Time Temp Pulse Resp B/P (MAP) Pulse Ox O2 Delivery O2 Flow Rate FiO2 06/24/19 08:20 20 06/24/19 08:10 Room Air 06/24/19 08:00 98.9 81 117/67 (84) 99 I&O- Last 24 Hours up to 6 AM 06/24/19 06:00 Intake Total 60 ml Balance 60 ml MIKE GUPTA MD Jun 24, 2019 11:15
[2019-06-24 12:00] VITALS: BP 110/56
[2019-06-24 13:02] LABS: CHOLESTEROL LEVEL 195 MG/DL (<200); CHOLESTEROL RISK RATIO 4.239 (<5); HDL CHOLESTEROL 46 MG/DL (>40); NON-HDL-C 149 MG/DL; TRIGLYCERIDES LEVEL 516 MG/DL (<150)
[2019-06-24 22:00] VITALS: BP 109/55
[2019-06-25] MEDS: NS 1,000 ML IV SCH ×3 (01:02→08:29)
[2019-06-25 04:41] VITALS: BP 109/58
[2019-06-25 05:09] LABS: HEMATOCRIT 29.5 % (36.0-47.0); HEMOGLOBIN 9.6 g/dl (12.0-15.5); MEAN CORPUSCULAR HEMOGLOBIN 27.1 pg (27.0-33.0); MEAN CORPUSCULAR HGB CONC 32.5 g/dl (32.0-36.5); MEAN CORPUSCULAR VOLUME 83.3 fl (80.0-96.0); PLATELET COUNT, AUTOMATED 167 10^3/uL (150-450); RED BLOOD COUNT 3.54 10^6/uL (4.00-5.40); WHITE BLOOD COUNT 9.6 10^3/uL (4.0-10.0)
[2019-06-25 05:33] LABS: ALBUMIN 2.5 GM/DL (3.2-5.2); ALT/SGPT 19 U/L (12-78); BILIRUBIN,TOTAL 0.4 MG/DL (0.2-1.0); BLOOD UREA NITROGEN 3 MG/DL (7-18); CALCIUM LEVEL 7.9 MG/DL (8.5-10.1); CARBON DIOXIDE LEVEL 21 MEQ/L (21-32); CHLORIDE LEVEL 111 MEQ/L (98-107); CHOLESTEROL LEVEL 179 MG/DL (<200); CHOLESTEROL RISK RATIO 5.774 (<5); CREATININE FOR GFR 0.38 MG/DL (0.55-1.30); GLOMERULAR FILTRATION RATE > 60.0 (>58); GLUCOSE, FASTING 80 MG/DL (70-100); HDL CHOLESTEROL 31 MG/DL (>40); LDL CHOLESTEROL 80 MG/DL (<100); MAGNESIUM LEVEL 1.8 MG/DL (1.8-2.4); NON-HDL-C 148 MG/DL; POTASSIUM SERUM 3.5 MEQ/L (3.5-5.1); SODIUM LEVEL 140 MEQ/L (136-145); TOTAL PROTEIN 5.7 GM/DL (6.4-8.2); TRIGLYCERIDES LEVEL 341 MG/DL (<150)
[2019-06-25] MEDS ORDERED: gemfibroziL 600 MG TAB PO SCH (07:30)
[2019-06-25] MEDS: MULTIVITAMINS/MINERALS THERAP 1 TAB PO SCH (08:18)
[2019-06-25 08:23] VITALS: BP 119/57
[2019-06-25] MEDS: NICOTINE 14 MG/24 HR TRANSDERMAL TD SCH (09:00)
[2019-06-25] MEDS ORDERED: ATORVASTATIN 20 MG TAB PO SCH (09:00)
[2019-06-25] MEDS ORDERED: MAGNESIUM OXIDE 400 MG TAB (MAG-OX) PO ONE (09:15)
--- NOTE | 2019-06-25 10:56 | IPNPDOC ---
Text Note Date of Service The patient was seen on 06/25/19. NOTE Subjective: Patient is a 44-year-old female presented to the hospital 2 days ago with severe abdominal pain. Patient was diagnosed pancreatitis Patient says she is feeling better already patient was able tolerate water and Jell-O this morning and was looking forward to trying to eat some more food. Patient says her abdominal pain is mild at this time. Patient has been urinating quite frequently and she remains on IV fluids and is been able to tolerate by mouth intake. In talking with the patient, she does admit to drinking excessive amounts of alcohol. She says she likes to drink liquor and when she makes her mixed drinks she uses about 2 shots and will drink about 5 mixed drinks at a time. She does not do this every day but may be two sometimes three times a we ek. Review of systems General: Patient denies fevers HEENT: Patient denies headaches Cardiovascular: Patient denies chest pain Respiratory: Patient denies shortness of breath, cough GI: Patient endorses mild epigastric abdominal pain : Patient denies pain or difficulty with urination Extremities: Patient denies swelling or pain in extremities Objective: Vitals: (see below) General: No acute distress, laying comfortably in bed. HEENT: Normocephalic, atraumatic, moist mucous membranes. Neck: No JVD or lymphadenopathy Cardiac: RRR, No murmurs Pulm: Clear to auscultation b/l. No wheezing, rhonchi Abd: Mild epigastric abdominal pain. Abdomen is soft and nondistended. Ext: No edema in bilateral lower showing a small Labs (see below) Images: No imaging has been performed. Assessment: Patient is a 44-year-old female with a history of pancreatitis presented with severe abdominal pain which is thought to be secondary to pancreatitis which is thought to be secondary to hypertriglyceridemia. Plan 1. Pancreatitis secondary to hypertriglyceridemia. Patient's pain continues to improve. We are going to push a low-fat diet. Patient no longer needs pain medicine to manage her pain. Patient has been transferred out of the ICU however, she remains in the ICU due to bed availability on the medical surgical floor. Lipitor 20 mg has been started. Gemfibrozil has been held as the patient's triglyceride level has improved with fluid hydration. This will need to be followed outpatient. 2. Ovarian cyst: Follow-up with [facility] as an outpatient 3. Nonobstructing left renal calculi: No acute intervention DVT prophy: Lovenox Dispo: Pending continued improvement of the patient's abdominal pain and able to tolerate oral intake VS,Fishbone, I+O VS, Fishbone, I+O Laboratory Tests 06/25/19 04:56 Vital Signs Date Time Temp Pulse Resp B/P (MAP) Pulse Ox O2 Delivery O2 Flow Rate FiO2 06/25/19 08:23 98.6 76 18 119/57 (77) 97 Room Air I&O- Last 24 Hours up to 6 AM 06/25/19 06:00 Intake Total 7275 ml Balance 7275 ml GME ATTESTATION GME ATTESTATION My faculty preceptor for this patient encounter was physically present during the encounter and was fully available. All aspects of the patient interview, examination, medical decision making process, and medical care plan development were reviewed and approved by the faculty preceptor. The faculty preceptor is aw are and concurs with the plan as stated in the body of this note and will attest to such by his/her cosignature. ATTENDING NOTE Please see my discharge summary for hospital course and discharge plan. ISHAN BHANDARI DO Jun 25, 2019 10:56 MIKE GUPTA MD Jun 25, 2019 21:32
[2019-06-25] MEDS ORDERED: ATOR1TAB21 PO (14:20)
[2019-06-25] MEDS ORDERED: NICO21DI37 TOP (14:41)
--- NOTE | 2019-06-25 15:25 | DS.PDOC ---
Discharge Summary General Date of Admission Jun 23, 2019 at 21:16 Date of Discharge 06/25/2019 Attending Physician: MIKE GUPTA MD Discharge Summary PROCEDURES PERFORMED DURING STAY: None ADMITTING DIAGNOSES: 1. Pancreatitis DISCHARGE DIAGNOSES: 1. Acute pancreatitis 2/2 hypertriglyceridemia 2. Hyperlipidemia 3. Smoking COMPLICATIONS/CHIEF COMPLAINT: Pancreatitis. HISTORY OF PRESENT ILLNESS: 44 yo W with a history of prior pancreatitis, alcohol drinker of unclear amounts? with no history of withdrawal and untreated hyperlipidemia who presented with acute abdominal pain. HOSPITAL COURSE: CT showed inflamed pancreas while lipase was elevated and most important triglycerides were elevated to 1159, while tox screen was negative and alcohol was undetectable. She was admitted to the ICU for hypertriglyceridemia induced pancreatitis and started on fluids rapid improvement of her lipid profile while NPO. There had been a plan for treatment with insulin/dextrose in addition to the fluids for the hypertriglyceridemia but that was held when her profile improved with just fluids. By day 2 she was much improved and pain was much better controlled without any use of the PRN morphine. She was started on lipitor 20mg for HLD. On day 3 she tolerated a regular low fat diet and we are discharging her home on lipitor 20mg and nicotine patches for quitting smoking. DISCHARGE MEDICATIONS: Please see below. ALLERGIES: Please see below. PHYSICAL EXAMINATION ON DISCHARGE: VITAL SIGNS: Please see below. Hemodynamically stable GEN: well-nourished / well developed/ NAD INTEGUMENT: not flushed/ not jaundice / negative has old well-healed scar HEENT: NCAT / MMM / anicteric CVS: RRR/NMRG/ radial pedis pulses intact / no lower extremity edema LUNGS: clear to auscultation bilaterally on room air ABDOMEN: Normoactive bowel sounds/ no TTP/ no noted hepatosplenomegaly MSK/EXTREMITIES: range of motion intact in all 4 extremities NEURO: CN 2-12 are grossly intact / speech is not dysarthric/normal gait PSYCH: alert and oriented to person place and time/ able to understand and follow all commands LABORATORY DATA: Please see below. IMAGIN. Ultrasound " IMPRESSION: Negative right upper quadrant sonogram." 2. CT abdomen and pelvis " IMPRESSION: 1. Minimal peripancreatic induration about the head and neck consistent with minimal pancreatitis which is slightly increased in this portion of the gland since 12/07/2018. There is decreased edema about the pancreatic tail since the prior study. 2. Borderline hepatomegaly. 3. Punctate nonobstructing left renal calculus in the lower pole which is similar. 4. Left ovarian cyst measuring 5.8 x 3.3 x 2.3 cm which is increased since the prior study. " PROGNOSIS: Good ACTIVITY: As tolerated DIET: Low fat diet DISCHARGE PLAN: Home with lipitor, to follow up with PCP with lipid panel in 1m. If she has hypertriglyceridemia out of proportion to her HLD, should consider fibrate therapy. DISPOSITION: Home DISCHARGE INSTRUCTIONS: 1. Please take your lipitor 20mg daily. Please continue her 24hourly nicotine patch, and congratulations on the decision to quit smoking at this time. ITEMS TO FOLLOWUP ON ON OUTPATIENT: 1. Hyperlipidemia 2. Significant hypertriglyceridemia 3. Smoking --> quitting smoking at this time DISCHARGE CONDITION: Good TIME SPENT ON DISCHARGE: 47 minutes. Vital Signs/I&Os Vital Signs Date Time Temp Pulse Resp B/P (MAP) Pulse Ox O2 Delivery O2 Flow Rate FiO2 06/25/19 08:23 98.6 76 18 119/57 (77) 97 Room Air I&O- Last 24 Hours up to 6 AM 06/25/19 06:00 Intake Total 7275 ml Balance 7275 ml Laboratory Data Labs 24H Laboratory Tests 2 06/25/19 04:56: Nucleated Red Blood Cells % (auto) 0.0, Anion Gap 8, Glomerular Filtration Rate > 60.0, Calcium Level 7.9L, Magnesium Level 1.8, Total Bilirubin 0.4#, Aspartate Amino Transf (AST/SGOT) 15, Alanine Aminotransferase (ALT/SGPT) 19, Alkaline Phosphatase 42L, Total Protein 5.7L, Albumin 2.5L, Albumin/Globulin Ratio 0.78L, Triglycerides Level 341H, Total Cholesterol 179, LDL Cholesterol 80, Non-HDL Cholesterol (LDL + VLDL) 148, Total HDL Cholesterol 31L, Cholesterol/HDL Ratio 5.774H CBC/BMP Laboratory Tests 06/25/19 04:56 Discharge Medications Scheduled Atorvastatin Calcium (Atorvastatin Calcium) 20 Mg Tablet, 20 MG PO DAILY Nicotine (Nicotine Patch) 21 Mg Patch.td24, 1 PATCH TOP DAILY for smoking cessation Omeprazole (Omeprazole) 40 Mg Capsule.dr, 40 MG PO DAILY, (Reported) NEW MEDICATION, HAS NOT STARTED Scheduled PRN Ibuprofen (Ibuprofen) 400 Mg Tab, 800 MG PO Q6H PRN for PAIN, (Reported) Allergies Coded Allergies: No Known Allergies (Unverified , 12/07/18) MIKE GUPTA MD Jun 25, 2019 15:25
== END 2019-06-25 15:10 | disposition home or self-care (01) | DRG 423 ==
LOC: M ED 17:57 → M ED INP 21:16 → ENRESERV 21:53 → M MSPAV 23:11 → M ICU 06-24 05:29
PROVIDERS: ADMIT Internal Medicine; ATTEND Internal Medicine
DX: E78.1 Pure hyperglyceridemia (principal); K85.90 Acute pancreatitis without necrosis or infection, unspecified; N20.0 Calculus of kidney; F17.200 Nicotine dependence, unspecified, uncomplicated; E66.9 Obesity, unspecified; Z68.30 Body mass index [BMI] 30.0-30.9, adult; E78.5 Hyperlipidemia, unspecified

== ENCOUNTER → 2019-07-31 | Outpatient (REF) | payer OTHER ==
[~2019-07-31] MED LIST changes: +ATOR1TAB21 PO; +NICO21DI37 TOP; +OMEP-221 PO
[2019-07-31 12:29] LABS: HEMOGLOBIN A1c 5.3 %
[2019-07-31 12:41] LABS: CHOLESTEROL LEVEL 180 MG/DL (<200); CHOLESTEROL RISK RATIO 5.142 (<5); HDL CHOLESTEROL 35 MG/DL (>40); NON-HDL-C 145 MG/DL; TRIGLYCERIDES LEVEL 518 MG/DL (<150)
== END ==
LOC: M LAB REF 11:34
PROVIDERS: ATTEND Family Medicine
DX: E78.1 Pure hyperglyceridemia (principal)

== ENCOUNTER → 2019-10-22 | Outpatient (REF) | payer OTHER ==
[2019-10-22 13:35] LABS: BASO # 0.1 10^3/uL (0.0-0.2); BASO % 0.7 % (0.0-1.0); EOS # 0.2 10^3/uL (0.0-0.5); EOS % 2.5 % (0.0-3.0); HEMATOCRIT 39.5 % (36.0-47.0); HEMOGLOBIN 12.7 g/dl (12.0-15.5); LYMPH # 2.7 10^3/uL (1.5-5.0); MEAN CORPUSCULAR HEMOGLOBIN 26.1 pg (27.0-33.0); MEAN CORPUSCULAR HGB CONC 32.2 g/dl (32.0-36.5); MEAN CORPUSCULAR VOLUME 81.3 fl (80.0-96.0); MONO # 0.6 10^3/uL (0.0-0.8); MONO % 8.2 % (0.0-5.0); NEUTROPHILS # 3.7 10^3/uL (1.5-8.5); NEUTROPHILS % 51.3 % (36.0-66.0); PLATELET COUNT, AUTOMATED 213 10^3/uL (150-450); RED BLOOD COUNT 4.86 10^6/uL (4.00-5.40); WHITE BLOOD COUNT 7.2 10^3/uL (4.0-10.0)
[2019-10-22 13:49] LABS: ALBUMIN 3.7 GM/DL (3.2-5.2); ALT/SGPT 32 U/L (12-78); BILIRUBIN,TOTAL 0.6 MG/DL (0.2-1.0); BLOOD UREA NITROGEN 15 MG/DL (7-18); CALCIUM LEVEL 8.6 MG/DL (8.5-10.1); CARBON DIOXIDE LEVEL 24 MEQ/L (21-32); CHLORIDE LEVEL 110 MEQ/L (98-107); CHOLESTEROL LEVEL 196 MG/DL (<200); CHOLESTEROL RISK RATIO 5.297 (<5); GLOMERULAR FILTRATION RATE > 60.0 (>58); GLUCOSE, FASTING 91 MG/DL (70-100); HDL CHOLESTEROL 37 MG/DL (>40); LDL CHOLESTEROL 92 MG/DL (<100); NON-HDL-C 159 MG/DL; POTASSIUM SERUM 3.9 MEQ/L (3.5-5.1); SODIUM LEVEL 141 MEQ/L (136-145); TOTAL 25(OH) VITAMIN D 15.2 NG/ML (30.0-100.0); TRIGLYCERIDES LEVEL 337 MG/DL (<150)
== END ==
LOC: M LAB REF 12:01
PROVIDERS: ATTEND Family Medicine
DX: E78.1 Pure hyperglyceridemia (principal)

== ENCOUNTER 2019-11-06 00:44 | Emergency (ER) | payer OTHER ==
[~2019-11-06] VITALS: Ht 157.5 cm; Wt 75.0 kg
[2019-11-06] MEDS ORDERED: FENO134C PO (00:49)
[2019-11-06 01:35] LABS: HEMATOCRIT 40.3 % (36.0-47.0); HEMOGLOBIN 13.3 g/dl (12.0-15.5); MEAN CORPUSCULAR HEMOGLOBIN 26.6 pg (27.0-33.0); MEAN CORPUSCULAR VOLUME 80.6 fl (80.0-96.0); PLATELET COUNT, AUTOMATED 283 10^3/uL (150-450); WHITE BLOOD COUNT 8.8 10^3/uL (4.0-10.0)
[2019-11-06 02:04] LABS: ACETAMINOPHEN LEVEL < 2.0 UG/ML (10.0-30.0); ALT/SGPT 40 U/L (12-78); BILIRUBIN,DIRECT < 0.1 MG/DL (0.0-0.2); BILIRUBIN,TOTAL 0.3 MG/DL (0.2-1.0); BLOOD UREA NITROGEN 9 MG/DL (7-18); CARBON DIOXIDE LEVEL 24 MEQ/L (21-32); CHLORIDE LEVEL 110 MEQ/L (98-107); CREATININE FOR GFR 0.76 MG/DL (0.55-1.30); ETHYL ALCOHOL (ETHANOL) 0.203 % (0.000-0.010); GLOMERULAR FILTRATION RATE > 60.0 (>58); GLUCOSE, FASTING 107 MG/DL (70-100); POTASSIUM SERUM 3.6 MEQ/L (3.5-5.1); SALICYLATE LEVEL 4.6 MG/DL (5.0-30.0); SODIUM LEVEL 140 MEQ/L (136-145); TOTAL PROTEIN 7.6 GM/DL (6.4-8.2)
[2019-11-06 06:40] VITALS: BP 113/72
== END 2019-11-06 06:41 | disposition home or self-care (01) ==
LOC: M ED 00:44
DX: F10.120 Alcohol abuse with intoxication, uncomplicated (principal); F43.0 Acute stress reaction; F17.210 Nicotine dependence, cigarettes, uncomplicated; Z79.899 Other long term (current) drug therapy
CPT/HCPCS: 36415; 80048; 80076; 84443; 85027; 99284; G0480

== ENCOUNTER → 2022-10-07 | Outpatient (REF) | payer OTHER ==
[~2022-10-07] MED LIST changes: +FENO134C20 PO; -OMEP-221 PO; +OMEP40CA4 PO; +OMEP40CA5 PO; -OMEP40CA97 PO
[2022-10-07 17:03] LABS: BASO # 0.1 10^3/uL (0.0-0.2); BASO % 0.9 % (0.0-1.0); EOS # 0.2 10^3/uL (0.0-0.5); EOS % 2.9 % (0.0-3.0); HEMATOCRIT 41.4 % (36.0-47.0); HEMOGLOBIN 13.7 g/dl (12.0-15.5); LYMPH # 2.1 10^3/uL (1.5-5.0); MEAN CORPUSCULAR HEMOGLOBIN 28.6 pg (27.0-33.0); MEAN CORPUSCULAR HGB CONC 33.1 g/dl (32.0-36.5); MEAN CORPUSCULAR VOLUME 86.4 fl (80.0-96.0); MONO # 0.5 10^3/uL (0.0-0.8); MONO % 7.7 % (2.0-8.0); NEUTROPHILS # 4.1 10^3/uL (1.5-8.5); NEUTROPHILS % 57.9 % (36.0-66.0); PLATELET COUNT, AUTOMATED 291 10^3/uL (150-450); RED BLOOD COUNT 4.79 10^6/uL (4.00-5.40)
[2022-10-07 17:27] LABS: HEMOGLOBIN A1c 4.8 % (4.0-6.0)
[2022-10-07 17:55] LABS: HEPATITIS B SURFACE ANTIBODY NEGATIVE (POSITIVE); THYROID STIMULATING HORMONE 2.376 uIU/ML (0.55-4.78)
[2022-10-07 17:56] LABS: FERRITIN 86.3 NG/ML (7.3-270.7); TOTAL 25(OH) VITAMIN D 12.8 NG/ML (20.0-100.0)
[2022-10-07 18:07] LABS: HEPATITIS B SURFACE ANTIGEN NEGATIVE (NEGATIVE)
[2022-10-07 18:29] LABS: HEPATITIS B CORE ANTIBODY IGM NEGATIVE (NEGATIVE)
[2022-10-07 18:31] LABS: ALKALINE PHOSPHATASE 69 U/L (46-116); ALT/SGPT 35 U/L (7.0-40); AST/SGOT 27 U/L (<34); BILIRUBIN,TOTAL 0.2 MG/DL (0.3-1.2); BLOOD UREA NITROGEN 13 MG/DL (9-23); CALCIUM LEVEL 9.4 MG/DL (8.5-10.1); CARBON DIOXIDE LEVEL 25 MMOL/L (20-31); CHLORIDE LEVEL 104 MMOL/L (98-107); CHOLESTEROL LEVEL 255 MG/DL (<200); CHOLESTEROL RISK RATIO 10.53 (<5); CREATININE FOR GFR 0.55 MG/DL (0.55-1.30); GLOMERULAR FILTRATION RATE > 60.0 (>58); GLUCOSE, FASTING 81 MG/DL (60-100); HDL CHOLESTEROL 24.2 MG/DL (>40); NON-HDL-C 230.8 MG/DL; POTASSIUM SERUM 4.9 MMOL/L (3.5-5.1); SODIUM LEVEL 137 MMOL/L (136-145); TOTAL PROTEIN 6.9 G/DL (5.7-8.2)
[2022-10-07 18:33] LABS: TRIGLYCERIDES LEVEL 1372 MG/DL (<150)
[2022-10-09 06:08] LABS: CERULOPLASMIN 24.5 mg/dL (19.0-39.0); HEPATITIS BE ANTIGEN Negative (Negative)
== END ==
LOC: M LAB REF 16:26
PROVIDERS: ATTEND Nurse Practitioner Family
DX: K76.0 Fatty (change of) liver, not elsewhere classified (principal); E66.3 Overweight; E55.9 Vitamin D deficiency, unspecified; R53.83 Other fatigue; R94.5 Abnormal results of liver function studies; Z11.9 Encounter for screening for infectious and parasitic diseases, unspecified; Z68.30 Body mass index [BMI] 30.0-30.9, adult

== ENCOUNTER → 2022-10-13 | Outpatient (CLI) | payer OTHER | LOC: M WHC 09:32 | PROVIDERS: ATTEND Nurse Practitioner Family | DX: R92.2 Inconclusive mammogram (principal) ==

== ENCOUNTER → 2022-11-03 | Outpatient (CLI) | payer OTHER | LOC: M WHC 13:49 | PROVIDERS: ATTEND Nurse Practitioner Family | DX: Z12.31 Encounter for screening mammogram for malignant neoplasm of breast (principal) ==

== ENCOUNTER → 2022-12-01 | Outpatient (REF) | payer OTHER ==
[2022-12-01 14:31] LABS: CHOLESTEROL LEVEL 372 MG/DL (<200); CHOLESTEROL RISK RATIO 12.73 (<5); HDL CHOLESTEROL 29.2 MG/DL (>40); NON-HDL-C 342.8 MG/DL; TOTAL 25(OH) VITAMIN D 6.2 NG/ML (20.0-100.0); TRIGLYCERIDES LEVEL 3428 MG/DL (<150)
== END ==
LOC: M LAB REF 11:34
PROVIDERS: ATTEND Nurse Practitioner Family
DX: E55.9 Vitamin D deficiency, unspecified (principal); E78.2 Mixed hyperlipidemia

== ENCOUNTER → 2022-12-10 | Outpatient (REF) | payer OTHER ==
[2022-12-10 13:37] LABS: CHOLESTEROL LEVEL 230 MG/DL (<200); CHOLESTEROL RISK RATIO 6.78 (<5); HDL CHOLESTEROL 33.9 MG/DL (>40); NON-HDL-C 196.1 MG/DL; TRIGLYCERIDES LEVEL 706 MG/DL (<150)
[2022-12-10 13:41] LABS: TOTAL 25(OH) VITAMIN D 12.3 NG/ML (20.0-100.0)
== END ==
LOC: M LAB REF 12:13
PROVIDERS: ATTEND Nurse Practitioner Family
DX: E78.2 Mixed hyperlipidemia (principal); E55.9 Vitamin D deficiency, unspecified

== ENCOUNTER 2024-12-25 16:07 | Inpatient (IN) | payer OTHER, SELFPAY ==
[~2024-12-25] VITALS: Ht 157.5 cm; Wt 73.8 kg
[2024-12-25 17:32] LABS: BASO # 0.1 10^3/uL (0.0-0.2); BASO % 0.4 % (0.0-1.0); EOS # 0.1 10^3/uL (0.0-0.5); EOS % 0.9 % (0.0-3.0); LYMPH # 2.2 10^3/uL (1.5-5.0); LYMPH % 17.3 % (24.0-44.0); MONO # 0.8 10^3/uL (0.0-0.8); MONO % 5.8 % (2.0-8.0); NEUTROPHILS # 9.7 10^3/uL (1.5-8.5); NEUTROPHILS % 75.1 % (36.0-66.0); PLATELET COUNT, AUTOMATED 187 10^3/uL (150-450)
[2024-12-25] MEDS ORDERED: ISOVUE-370 76% 100 ML VIAL As Ordered ONE (18:45)
[2024-12-25] MEDS: MORPHINE 4 MG/ML 1 ML VIAL IV ONE ×2 (18:55→21:37)
[2024-12-25] MEDS: NS (Normal Saline) 0.9% 1,000 ML IV ONE (18:55)
[2024-12-25 18:58] LABS: KETONE, URINE AUTO RFX NEGATIVE (NEGATIVE); LEUKOCYTE ESTERASE UR AUTO RFX NEGATIVE (NEGATIVE); NITRITE, URINE AUTO RFX NEGATIVE (NEGATIVE); RBC, URINE AUTO RFX 3 /HPF (0-3); SQUAM EPITHELIAL CELL UR AURFX 11 /HPF (0-6); WBC, URINE AUTO RFX 1 /HPF (0-3)
[2024-12-25 19:04] LABS: ALT/SGPT 37 U/L (7.0-40); AST/SGOT 44 U/L (<34)
[2024-12-25] MEDS ORDERED: OMEP-173 PO ×2 (20:44)
[2024-12-25] MEDS ORDERED: HOME MED LIST COMPLETE! XX SCH (20:45)
[2024-12-25 22:00] LABS: INR 0.86
[2024-12-25] MEDS ORDERED: NALOXONE INJ 0.4 MG/1 ML VIAL IV PRN (22:05)
[2024-12-25] MEDS ORDERED: KETOROLAC 30 MG/ML 1 ML VIAL IV PRN (22:05)
[2024-12-25] MEDS ORDERED: NICOTINE 21 MG/24 HR 1 EA TRANSDERMAL TD PRN (22:05)
[2024-12-25] MEDS ORDERED: MOM 30 ML SUSPENSION UDC PO PRN (22:05)
[2024-12-25] MEDS ORDERED: MORPHINE 4 MG/ML 1 ML VIAL IV PRN (22:05)
[2024-12-25] MEDS ORDERED: MAALOX 30 ML SUSP *UDC PO PRN (22:05)
[2024-12-25 22:25] LABS: ETHYL ALCOHOL (ETHANOL) < 0.003 % (0.000-0.010)
[2024-12-25 22:31] LABS: MAGNESIUM LEVEL 1.5 MG/DL (1.8-2.4)
[2024-12-25] MEDS: THIAMINE 100 MG TAB PO SCH (22:32)
[2024-12-25] MEDS: NS (Normal Saline) 0.9% 1,000 ML IV SCH (22:32)
[2024-12-25] MEDS: PANTOPRAZOLE 40MG VIAL IV SCH (22:32)
[2024-12-25 22:59] LABS: C REACTIVE PROTEIN QUANTITATIV 2.66 MG/DL (<1.0)
[2024-12-26] MEDS: CIPROFLOXACIN 400 MG in IV 1 EA IV SCH (00:03)
[2024-12-26] MEDS: metroNIDAZOLE 500 MG in IV 1 EA IV SCH (02:01)
[2024-12-26] MEDS: ONDANSETRON 4MG 2ML VIAL IV PRN (02:34)
[2024-12-26] MEDS: MAG SULF 1GM/100ML (MAG RUN) 1 GM in IV 1 EA IV ONE (03:29)
[2024-12-26] MEDS: KETOROLAC 30 MG/ML 1 ML VIAL IV PRN (04:44)
[2024-12-26] MEDS: ENOXAPARIN 40 MG/0.4 ML SYRINGE (J1650 PER 10MG) SC SCH (09:00)
[2024-12-26 09:10] LABS: PLATELET COUNT, AUTOMATED 202 10^3/uL (150-450)
[2024-12-26] MEDS: DOCUSATE SODIUM 100 MG CAPSULE PO SCH (09:19)
[2024-12-26] MEDS: MULTIVITAMINS/MINERALS THERAP 1 TAB PO SCH (09:19)
[2024-12-26] MEDS: FOLIC ACID 1 MG TAB PO SCH (09:24)
[2024-12-26 09:27] LABS: ALT/SGPT 26 U/L (7.0-40); AST/SGOT 57 U/L (<34); CALCIUM LEVEL 8.1 MG/DL (8.5-10.1); CARBON DIOXIDE LEVEL 24 MMOL/L (20-31); CHLORIDE LEVEL 104 MMOL/L (98-107); CREATININE FOR GFR 0.39 MG/DL (0.55-1.30); GLOMERULAR FILTRATION RATE > 90.0 (>58); MAGNESIUM LEVEL 1.9 MG/DL (1.8-2.4); POTASSIUM SERUM 4.8 MMOL/L (3.5-5.1); SODIUM LEVEL 135 MMOL/L (136-145); TRIGLYCERIDES LEVEL 3801 MG/DL (<150)
[2024-12-26] MEDS: ACETAMINOPHEN 325 MG TAB PO PRN (09:33)
[2024-12-26] MEDS ORDERED: MORPHINE 2 MG/ML 1 ML VIAL IV PRN (09:40)
[2024-12-26] MEDS ORDERED: KETOROLAC 30 MG/ML 1 ML VIAL IV PRN (09:40)
[2024-12-26] MEDS ORDERED: INSULIN IV RATE CHANGE DOCUMENTATION ML/HR XX SCH (11:05)
[2024-12-26 12:00] VITALS: BP 150/71; TEMP 97.9; O2SAT 99
[2024-12-26] MEDS ORDERED: D5W/LR 1,000 ML IV SCH (12:15)
[2024-12-26] MEDS: D10W/0.45% SODIUM CHLORIDE 1,000 ML IV SCH (12:33)
[2024-12-26] MEDS: INSULIN REGULAR IN 0.9 % NACL 100 UNIT in IV 1 EA IV SCH (12:45)
[2024-12-26] MEDS: FENOFIBRATE 48 MG TABLET PO SCH (14:38)
[2024-12-26] MEDS: OMEGA-3 1000 MG CAPSULE PO SCH (14:38)
[2024-12-26 16:00] VITALS: BP 111/61; TEMP 97.9; O2SAT 96
[2024-12-26] MEDS ORDERED: D10W/0.45% SODIUM CHLORIDE 1,000 ML IV SCH (16:00)
[2024-12-26] MEDS ORDERED: GLUCOSE 4 GM CHEW PO PRN (17:10)
[2024-12-26] MEDS ORDERED: DEXTROSE 50% 50 ML SYRINGE IV PRN (17:10)
[2024-12-26] MEDS ORDERED: GLUCAGON INJ 1 MG VIAL SC PRN (17:10)
[2024-12-26 18:05] LABS: CALCIUM LEVEL 8.6 MG/DL (8.5-10.1); CARBON DIOXIDE LEVEL 23 MMOL/L (20-31); CHLORIDE LEVEL 106 MMOL/L (98-107); CREATININE FOR GFR 0.43 MG/DL (0.55-1.30); GLOMERULAR FILTRATION RATE > 90.0 (>58); POTASSIUM SERUM 3.2 MMOL/L (3.5-5.1); SODIUM LEVEL 137 MMOL/L (136-145)
[2024-12-26] MEDS: POTASSIUM CHLORIDE 10MEQ SR TABLET PO ONE (19:03)
[2024-12-26 20:00] VITALS: BP 117/58; TEMP 97.6; O2SAT 95
[2024-12-27] VITALS: BP 118/60; O2SAT 95
[2024-12-27 01:49] LABS: CALCIUM LEVEL 8.3 MG/DL (8.5-10.1); CARBON DIOXIDE LEVEL 22 MMOL/L (20-31); CHLORIDE LEVEL 106 MMOL/L (98-107); CREATININE FOR GFR 0.44 MG/DL (0.55-1.30); GLOMERULAR FILTRATION RATE > 90.0 (>58); POTASSIUM SERUM 4.1 MMOL/L (3.5-5.1); SODIUM LEVEL 139 MMOL/L (136-145)
[2024-12-27 04:00] VITALS: BP 123/57; TEMP 98.1; O2SAT 96
[2024-12-27 05:57] LABS: BASO # 0.0 10^3/uL (0.0-0.2); BASO % 0.2 % (0.0-1.0); EOS # 0.1 10^3/uL (0.0-0.5); EOS % 1.1 % (0.0-3.0); LYMPH # 1.4 10^3/uL (1.5-5.0); LYMPH % 12.5 % (24.0-44.0); MONO # 0.5 10^3/uL (0.0-0.8); MONO % 4.6 % (2.0-8.0); NEUTROPHILS # 9.2 10^3/uL (1.5-8.5); NEUTROPHILS % 81.2 % (36.0-66.0); PLATELET COUNT, AUTOMATED 155 10^3/uL (150-450)
[2024-12-27 06:33] LABS: ALT/SGPT 22 U/L (7.0-40); AST/SGOT 19 U/L (<34); CALCIUM LEVEL 8.6 MG/DL (8.5-10.1); CARBON DIOXIDE LEVEL 22 MMOL/L (20-31); CHLORIDE LEVEL 107 MMOL/L (98-107); CREATININE FOR GFR 0.45 MG/DL (0.55-1.30); GLOMERULAR FILTRATION RATE > 90.0 (>58); MAGNESIUM LEVEL 1.8 MG/DL (1.8-2.4); PHOSPHORUS LEVEL 2.2 MG/DL (2.5-4.9); POTASSIUM SERUM 3.7 MMOL/L (3.5-5.1); SODIUM LEVEL 138 MMOL/L (136-145); TRIGLYCERIDES LEVEL 943 MG/DL (<150)
[2024-12-27 08:00] VITALS: BP 120/70; TEMP 97.5; O2SAT 97
[2024-12-27] MEDS: BISACODYL 5 MG TAB PO SCH (10:09)
[2024-12-27] MEDS: SENNA 8.6 MG TAB PO SCH (10:09)
[2024-12-27 10:10] LABS: CALCIUM LEVEL 8.9 MG/DL (8.5-10.1); CARBON DIOXIDE LEVEL 19 MMOL/L (20-31); CHLORIDE LEVEL 106 MMOL/L (98-107); CREATININE FOR GFR 0.45 MG/DL (0.55-1.30); GLOMERULAR FILTRATION RATE > 90.0 (>58); POTASSIUM SERUM 4.7 MMOL/L (3.5-5.1); SODIUM LEVEL 136 MMOL/L (136-145)
[2024-12-27 12:00] VITALS: BP 120/56; TEMP 98; O2SAT 96
[2024-12-27 16:00] VITALS: BP 93/67; TEMP 97.2; O2SAT 100
[2024-12-27 18:00] LABS: CALCIUM LEVEL 8.9 MG/DL (8.5-10.1); CARBON DIOXIDE LEVEL 23 MMOL/L (20-31); CHLORIDE LEVEL 106 MMOL/L (98-107); CREATININE FOR GFR 0.49 MG/DL (0.55-1.30); GLOMERULAR FILTRATION RATE > 90.0 (>58); POTASSIUM SERUM 3.4 MMOL/L (3.5-5.1); SODIUM LEVEL 140 MMOL/L (136-145)
[2024-12-27] MEDS: POTASSIUM CHLORIDE 10MEQ SR TABLET PO ONE (18:47)
[2024-12-27 20:00] VITALS: BP 125/57; TEMP 97.4; O2SAT 98
[2024-12-28] VITALS (7 sets, daily range): BP systolic 105–135; BP diastolic 56–63; TEMP 97.5–98.5; O2SAT 97–100
[2024-12-28 01:32] LABS: CALCIUM LEVEL 8.4 MG/DL (8.5-10.1); CARBON DIOXIDE LEVEL 22 MMOL/L (20-31); CHLORIDE LEVEL 109 MMOL/L (98-107); CREATININE FOR GFR 0.54 MG/DL (0.55-1.30); GLOMERULAR FILTRATION RATE > 90.0 (>58); POTASSIUM SERUM 3.8 MMOL/L (3.5-5.1); SODIUM LEVEL 140 MMOL/L (136-145)
[2024-12-28] MEDS: D10W IV SCH ×2 (02:37→13:28)
[2024-12-28] MEDS: SODIUM CHLORIDE IV SCH ×2 (02:37→13:28)
[2024-12-28 04:49] LABS: PLATELET COUNT, AUTOMATED 187 10^3/uL (150-450)
[2024-12-28 09:48] LABS: CALCIUM LEVEL 8.8 MG/DL (8.5-10.1); CARBON DIOXIDE LEVEL 21 MMOL/L (20-31); CHLORIDE LEVEL 108 MMOL/L (98-107); CREATININE FOR GFR 0.55 MG/DL (0.55-1.30); GLOMERULAR FILTRATION RATE > 90.0 (>58); POTASSIUM SERUM 4.0 MMOL/L (3.5-5.1); SODIUM LEVEL 140 MMOL/L (136-145)
[2024-12-28 10:56] LABS: CHOLESTEROL LEVEL 364 MG/DL (<200); CHOLESTEROL RISK RATIO 12.21 (<5); NON-HDL-C 334.2 MG/DL; TRIGLYCERIDES LEVEL 610 MG/DL (<150)
[2024-12-28 17:50] LABS: CALCIUM LEVEL 8.9 MG/DL (8.5-10.1); CARBON DIOXIDE LEVEL 22 MMOL/L (20-31); CHLORIDE LEVEL 106 MMOL/L (98-107); CREATININE FOR GFR 0.51 MG/DL (0.55-1.30); GLOMERULAR FILTRATION RATE > 90.0 (>58); POTASSIUM SERUM 3.8 MMOL/L (3.5-5.1); SODIUM LEVEL 139 MMOL/L (136-145)
[2024-12-29 04:43] VITALS: BP 115/55; TEMP 98.2; O2SAT 97
[2024-12-29 07:34] VITALS: BP 115/55; TEMP 97.7; TEMP 98.2; O2SAT 97
[2024-12-29 07:49] LABS: BASO # 0.1 10^3/uL (0.0-0.2); BASO % 0.9 % (0.0-1.0); EOS # 0.3 10^3/uL (0.0-0.5); EOS % 3.9 % (0.0-3.0); LYMPH # 2.1 10^3/uL (1.5-5.0); LYMPH % 26.8 % (24.0-44.0); MONO # 0.7 10^3/uL (0.0-0.8); MONO % 9.0 % (2.0-8.0); NEUTROPHILS # 4.7 10^3/uL (1.5-8.5); NEUTROPHILS % 58.6 % (36.0-66.0); PLATELET COUNT, AUTOMATED 221 10^3/uL (150-450)
[2024-12-29 08:13] LABS: CALCIUM LEVEL 9.0 MG/DL (8.5-10.1); CARBON DIOXIDE LEVEL 24 MMOL/L (20-31); CHLORIDE LEVEL 108 MMOL/L (98-107); CHOLESTEROL LEVEL 360 MG/DL (<200); CHOLESTEROL RISK RATIO 12.08 (<5); CREATININE FOR GFR 0.58 MG/DL (0.55-1.30); GLOMERULAR FILTRATION RATE > 90.0 (>58); NON-HDL-C 330.2 MG/DL; POTASSIUM SERUM 3.7 MMOL/L (3.5-5.1); SODIUM LEVEL 143 MMOL/L (136-145); TRIGLYCERIDES LEVEL 482 MG/DL (<150)
[2024-12-29] MEDS: ATORVASTATIN 20 MG TAB PO SCH (12:01)
[2024-12-29 13:45] VITALS: BP 125/56; TEMP 96.8; O2SAT 100
[2024-12-29 16:50] LABS: CHOLESTEROL LEVEL 385 MG/DL (<200); CHOLESTEROL RISK RATIO 12.58 (<5); NON-HDL-C 354.4 MG/DL; TRIGLYCERIDES LEVEL 562 MG/DL (<150)
[2024-12-29] MEDS ORDERED: SENN1TAB85 PO (17:43)
[2024-12-29] MEDS ORDERED: FENO48TA8 PO (17:43)
[2024-12-29] MEDS ORDERED: ATOR1TAB21 PO (17:43)
[2024-12-29] MEDS ORDERED: FISH1CAP26 PO (18:22)
== END 2024-12-29 18:45 | disposition home or self-care (01) | DRG 282 ==
LOC: M ED 16:07 → M ED INP 22:03 → M ICU 12-26 11:58
PROVIDERS: ADMIT Internal Medicine; ATTEND Internal Medicine Nephrology
DX: K85.20 Alcohol induced acute pancreatitis without necrosis or infection (principal); K76.0 Fatty (change of) liver, not elsewhere classified; K21.9 Gastro-esophageal reflux disease without esophagitis; E78.5 Hyperlipidemia, unspecified; F10.20 Alcohol dependence, uncomplicated; F17.210 Nicotine dependence, cigarettes, uncomplicated; E78.1 Pure hyperglyceridemia; E16.2 Hypoglycemia, unspecified; E87.6 Hypokalemia; D63.8 Anemia in other chronic diseases classified elsewhere; Z79.899 Other long term (current) drug therapy; Z87.442 Personal history of urinary calculi

== ENCOUNTER → 2024-12-31 | Outpatient (CLI) | payer OTHER, SELFPAY ==
[~2024-12-31] MED LIST changes: +FENO48TA8 PO; +FISH1CAP26 PO; +OMEP-173 PO; +SENN1TAB85 PO
== END ==
LOC: M LAB 08:25
PROVIDERS: ATTEND Internal Medicine Critical Care Medicine
DX: K85.90 Acute pancreatitis without necrosis or infection, unspecified (principal)

== ENCOUNTER → 2025-02-01 | Outpatient (REF) | payer OTHER ==
[2025-02-01 13:59] LABS: IRON (FE) 54 UG/DL (50-170); PERCENT SATURATION 13.7 % (13.2-45.0)
[2025-02-01 14:00] LABS: ALT/SGPT 44 U/L (7.0-40); AST/SGOT 28 U/L (<34); CHOLESTEROL LEVEL 219 MG/DL (<200); CHOLESTEROL RISK RATIO 5.44 (<5); MAGNESIUM LEVEL 1.7 MG/DL (1.8-2.4); NON-HDL-C 178.8 MG/DL; TRIGLYCERIDES LEVEL 913 MG/DL (<150); VITAMIN B12 LEVEL 455 PG/ML (211-911)
[2025-02-01 14:01] LABS: BASO # 0.0 10^3/uL (0.0-0.2); BASO % 0.6 % (0.0-1.0); EOS # 0.1 10^3/uL (0.0-0.5); EOS % 1.9 % (0.0-3.0); LYMPH # 2.1 10^3/uL (1.5-5.0); LYMPH % 32.7 % (24.0-44.0); MONO # 0.4 10^3/uL (0.0-0.8); MONO % 6.1 % (2.0-8.0); NEUTROPHILS # 3.7 10^3/uL (1.5-8.5); NEUTROPHILS % 58.4 % (36.0-66.0); PLATELET COUNT, AUTOMATED 245 10^3/uL (150-450)
[2025-02-01 14:20] LABS: ESTIMATED AVERAGE GLUCOSE 97.0 MG/DL (60-110)
== END ==
LOC: M LAB REF 12:58
PROVIDERS: ATTEND Nurse Practitioner Family
DX: K85.20 Alcohol induced acute pancreatitis without necrosis or infection (principal); K76.0 Fatty (change of) liver, not elsewhere classified; E78.2 Mixed hyperlipidemia; F10.90 Alcohol use, unspecified, uncomplicated; E66.811 Obesity, class 1; Z87.42 Personal history of other diseases of the female genital tract; N92.0 Excessive and frequent menstruation with regular cycle

== ENCOUNTER → 2025-02-14 | Outpatient (REF) | payer OTHER ==
[2025-02-19 15:08] LABS: HPV APTIMA Not Detected (Not Detected)
== END ==
LOC: M PLALAB 14:59
PROVIDERS: ATTEND Physician Assistant
DX: Z12.4 Encounter for screening for malignant neoplasm of cervix (principal)

== ENCOUNTER → 2025-03-28 | Outpatient (CLI) | payer OTHER | LOC: M CARPUL 08:18 | PROVIDERS: ATTEND Internal Medicine Cardiovascular Disease | DX: I25.10 Atherosclerotic heart disease of native coronary artery without angina pectoris (principal) ==